=== PATIENT | female | born 1940 | race Caucasian/White ===

== ENCOUNTER 2020-04-04 11:50 | Inpatient (IN) ==
[2020-04-04 13:04] LABS: Basophils # 0.1 10*3/uL (0.0-0.2); Basophils % 0.5 % (0.0-0.8); Eosinophils # 0.6 10*3/uL (0.0-0.87); Eosinophils % 6.3 % (0.00-10.9); Hematocrit 42.2 VOL% (35.7-47.0); Hemoglobin 13.6 GM/DL (12.0-16.0); Immature Granulocytes % 0.3 %; Immature Granulocytes Absolute 0.03 #; Lymphocytes # 1.9 10*3/uL (1.4-4.0); Lymphocytes % 20.5 % (21.3-54.2); Mean Corpuscular HGB Conc 32.2 GM/DL (32-36); Mean Corpuscular Volume 100.2 FL (87-102); Mean Platelet Volume 9.8 FL (9.6-12.0); Monocytes % 6.8 % (1.7-12.7); Neutrophils % 65.6 % (38.7-73.9); Platelet Count 193 T/CUMM (130-400); Red Blood Count 4.21 MC/CUMM (3.8-5.5); Red Cell Distribution Width 14.3 % (9.3-17.3); White Blood Count 9.4 T/CUMM (4-12)
[2020-04-04 13:15] LABS: PT Patient Result 10.4 SECS (9.8-11.9); Partial Thromboplastin Time 31.4 SECS (23.9-33.8)
[2020-04-04 13:28] LABS: Albumin 4.1 G/DL (3.4-5.0); Bilirubin,Total 0.5 MG/DL (0.2-1.0); Calcium 10.1 MG/DL (8.5-10.1); Osmolality,Calculated 284.1 MOS/KG (273-304); Total Protein 7.2 G/DL (6.4-8.3)
[2020-04-04 14:05] LABS: Sedimentation Rate-Westergren 13 MM/HR (0-30)
[2020-04-04] MEDS ORDERED: LABETALOL 20 MG/4 ML SYRINGE IV PRN ×2 (17:10→18:15)
[2020-04-04] MEDS ORDERED: POLYETHYLENE GLYCOL POWDER 17 GM PACK PO PRN (17:32)
[2020-04-04] MEDS ORDERED: hydrALAZINE 20 MG/1 ML VIAL IV STA (18:11)
[2020-04-04] MEDS ORDERED: hydrALAZINE 20 MG/1 ML VIAL ONE (18:13)
[2020-04-04] MEDS: hydrALAZINE 25 MG TABLET PO SCH (20:24)
[2020-04-04] MEDS: carvediloL 25 MG TABLET PO SCH (20:24)
[2020-04-04] MEDS: ISOSORBIDE MONONITRATE 20 MG TABLET PO SCH (20:24)
[2020-04-04] MEDS: METHOCARBAMOL 750 MG TABLET PO SCH (20:24)
[2020-04-04] MEDS: ENOXAPARIN 40 MG/0.4 ML SYRINGE SUBCUT SCH (20:26)
[2020-04-04] MEDS: ATORVASTATIN 10 MG TABLET PO SCH (20:26)
[2020-04-04] MEDS: GABAPENTIN 300 MG CAPSULE PO SCH (20:26)
[2020-04-04] MEDS: AMITRIPTYLINE 25 MG TABLET PO SCH (20:26)
[2020-04-04] MEDS: lisinopriL 20 MG TABLET PO SCH (20:26)
[2020-04-04] MEDS ORDERED: HYOSCYAMINE 0.125 MG TABLET PO PRN (21:00)
[2020-04-04] MEDS ORDERED: NIFEdipine 10 MG CAPSULE PO PRN (22:00)
[2020-04-05] MEDS: METHOCARBAMOL 750 MG TABLET PO SCH ×3 (04:56→20:35)
[2020-04-05] MEDS: GABAPENTIN 300 MG CAPSULE PO SCH ×3 (04:56→20:35)
[2020-04-05] MEDS: LEVOTHYROXINE 75 MCG TABLET PO SCH (06:40)
[2020-04-05 07:24] LABS: Basophils % 0.3 % (0.0-0.8); Eosinophils # 0.5 10*3/uL (0.0-0.87); Eosinophils % 4.7 % (0.00-10.9); Hematocrit 40.3 VOL% (35.7-47.0); Hemoglobin 12.9 GM/DL (12.0-16.0); Immature Granulocytes % 0.4 %; Immature Granulocytes Absolute 0.04 #; Lymphocytes # 2.4 10*3/uL (1.4-4.0); Lymphocytes % 23.4 % (21.3-54.2); Mean Corpuscular Volume 100.2 FL (87-102); Mean Platelet Volume 10.1 FL (9.6-12.0); Monocytes % 9.3 % (1.7-12.7); Neutrophils % 61.9 % (38.7-73.9); Platelet Count 193 T/CUMM (130-400); Red Blood Count 4.02 MC/CUMM (3.8-5.5); Red Cell Distribution Width 14.1 % (9.3-17.3); White Blood Count 10.3 T/CUMM (4-12)
[2020-04-05 07:40] LABS: Calcium 9.3 MG/DL (8.5-10.1); Osmolality,Calculated 276.5 MOS/KG (273-304); Risk Ratio 2.54; VLDL CHOLESTEROL 31.6 MG/DL
[2020-04-05] MEDS: ISOSORBIDE MONONITRATE 20 MG TABLET PO SCH ×2 (09:14→20:36)
[2020-04-05] MEDS: lisinopriL 20 MG TABLET PO SCH ×2 (09:15→20:36)
[2020-04-05] MEDS: amLODIPine 10 MG TABLET PO SCH (09:15)
[2020-04-05] MEDS: CLOPIDOGREL 75 MG TABLET PO SCH (09:15)
[2020-04-05] MEDS: carvediloL 25 MG TABLET PO SCH ×2 (09:15→20:36)
[2020-04-05] MEDS: hydrALAZINE 25 MG TABLET PO SCH ×2 (09:15→20:36)
[2020-04-05] MEDS: MAGNESIUM CHLORIDE 64 MG TABLET PO SCH (09:15)
[2020-04-05] MEDS: PANTOPRAZOLE 40 MG TABLET PO SCH (09:15)
[2020-04-05] MEDS: ASPIRIN 325 MG TABLET PO SCH (09:15)
[2020-04-05] MEDS: ATORVASTATIN 10 MG TABLET PO SCH (20:36)
[2020-04-05] MEDS: AMITRIPTYLINE 25 MG TABLET PO SCH (20:37)
[2020-04-05] MEDS: ENOXAPARIN 40 MG/0.4 ML SYRINGE SUBCUT SCH (20:37)
[2020-04-06 04:30] LABS: Basophils % 0.4 % (0.0-0.8); Eosinophils # 0.6 10*3/uL (0.0-0.87); Eosinophils % 6.4 % (0.00-10.9); Hemoglobin 12.8 GM/DL (12.0-16.0); Immature Granulocytes % 0.2 %; Immature Granulocytes Absolute 0.02 #; Lymphocytes # 3.6 10*3/uL (1.4-4.0); Mean Corpuscular HGB Conc 32.8 GM/DL (32-36); Mean Corpuscular Volume 99.5 FL (87-102); Mean Platelet Volume 10.2 FL (9.6-12.0); Monocytes % 9.7 % (1.7-12.7); Neutrophils % 44.3 % (38.7-73.9); Platelet Count 195 T/CUMM (130-400); Red Blood Count 3.92 MC/CUMM (3.8-5.5); Red Cell Distribution Width 14.1 % (9.3-17.3); White Blood Count 9.3 T/CUMM (4-12)
[2020-04-06 04:47] LABS: Calcium 9.2 MG/DL (8.5-10.1); Osmolality,Calculated 283.3 MOS/KG (273-304)
[2020-04-06] MEDS: METHOCARBAMOL 750 MG TABLET PO SCH ×3 (05:28→20:36)
[2020-04-06] MEDS: GABAPENTIN 300 MG CAPSULE PO SCH ×3 (05:28→20:35)
[2020-04-06] MEDS: hydrALAZINE 25 MG TABLET PO SCH ×2 (08:45→20:35)
[2020-04-06] MEDS: ASPIRIN 325 MG TABLET PO SCH (08:45)
[2020-04-06] MEDS: ISOSORBIDE MONONITRATE 20 MG TABLET PO SCH ×2 (08:45→20:35)
[2020-04-06] MEDS: LEVOTHYROXINE 75 MCG TABLET PO SCH (08:45)
[2020-04-06] MEDS: lisinopriL 20 MG TABLET PO SCH ×2 (08:46→20:35)
[2020-04-06] MEDS: carvediloL 25 MG TABLET PO SCH ×2 (08:46→20:36)
[2020-04-06] MEDS: PANTOPRAZOLE 40 MG TABLET PO SCH (08:46)
[2020-04-06] MEDS: MAGNESIUM CHLORIDE 64 MG TABLET PO SCH (08:46)
[2020-04-06] MEDS: amLODIPine 10 MG TABLET PO SCH (08:46)
[2020-04-06] MEDS: CLOPIDOGREL 75 MG TABLET PO SCH (08:46)
[2020-04-06] MEDS: AMITRIPTYLINE 25 MG TABLET PO SCH (20:35)
[2020-04-06] MEDS: ATORVASTATIN 10 MG TABLET PO SCH (20:36)
[2020-04-06] MEDS: ENOXAPARIN 40 MG/0.4 ML SYRINGE SUBCUT SCH (20:36)
[2020-04-07] MEDS: GABAPENTIN 300 MG CAPSULE PO SCH ×3 (05:09→20:39)
[2020-04-07] MEDS: METHOCARBAMOL 750 MG TABLET PO SCH ×3 (05:10→20:39)
[2020-04-07] MEDS: LEVOTHYROXINE 75 MCG TABLET PO SCH (05:58)
[2020-04-07] MEDS: hydrALAZINE 25 MG TABLET PO SCH ×2 (09:00→20:39)
[2020-04-07] MEDS: ASPIRIN 325 MG TABLET PO SCH (09:00)
[2020-04-07] MEDS: ISOSORBIDE MONONITRATE 20 MG TABLET PO SCH ×2 (09:00→20:39)
[2020-04-07] MEDS: amLODIPine 10 MG TABLET PO SCH (09:00)
[2020-04-07] MEDS: PANTOPRAZOLE 40 MG TABLET PO SCH (09:00)
[2020-04-07] MEDS: CLOPIDOGREL 75 MG TABLET PO SCH (09:00)
[2020-04-07] MEDS: MAGNESIUM CHLORIDE 64 MG TABLET PO SCH (09:01)
[2020-04-07] MEDS: lisinopriL 20 MG TABLET PO SCH ×2 (09:01→20:40)
[2020-04-07] MEDS: carvediloL 25 MG TABLET PO SCH ×2 (09:01→20:40)
[2020-04-07] MEDS: ATORVASTATIN 10 MG TABLET PO SCH (20:39)
[2020-04-07] MEDS: AMITRIPTYLINE 25 MG TABLET PO SCH (20:40)
[2020-04-07] MEDS: ENOXAPARIN 40 MG/0.4 ML SYRINGE SUBCUT SCH (20:40)
[2020-04-08] MEDS: GABAPENTIN 300 MG CAPSULE PO SCH ×3 (04:48→20:09)
[2020-04-08] MEDS: METHOCARBAMOL 750 MG TABLET PO SCH ×3 (04:48→20:09)
[2020-04-08] MEDS: LEVOTHYROXINE 75 MCG TABLET PO SCH (05:33)
[2020-04-08 06:36] LABS: Rheumatoid Factor < 15 IU/ML (<15); Uric Acid 6.1 MG/DL (2.6-6.0)
[2020-04-08 08:23] LABS: Cyclic Citrull Peptide Interp Negative
[2020-04-08] MEDS: hydrALAZINE 25 MG TABLET PO SCH ×2 (08:52→20:10)
[2020-04-08] MEDS: CLOPIDOGREL 75 MG TABLET PO SCH (08:52)
[2020-04-08] MEDS: lisinopriL 20 MG TABLET PO SCH ×2 (08:52→20:10)
[2020-04-08] MEDS: MAGNESIUM CHLORIDE 64 MG TABLET PO SCH (08:52)
[2020-04-08] MEDS: amLODIPine 10 MG TABLET PO SCH (08:52)
[2020-04-08] MEDS: PANTOPRAZOLE 40 MG TABLET PO SCH (08:52)
[2020-04-08] MEDS: ASPIRIN 325 MG TABLET PO SCH (08:52)
[2020-04-08] MEDS: carvediloL 25 MG TABLET PO SCH ×2 (08:52→20:10)
[2020-04-08] MEDS: ISOSORBIDE MONONITRATE 20 MG TABLET PO SCH ×2 (08:53→20:10)
[2020-04-08] MEDS: AMITRIPTYLINE 25 MG TABLET PO SCH (20:10)
[2020-04-08] MEDS: ATORVASTATIN 10 MG TABLET PO SCH (20:10)
[2020-04-08] MEDS: ENOXAPARIN 40 MG/0.4 ML SYRINGE SUBCUT SCH (20:12)
[2020-04-09] MEDS: GABAPENTIN 300 MG CAPSULE PO SCH ×2 (06:35→12:40)
[2020-04-09] MEDS: METHOCARBAMOL 750 MG TABLET PO SCH ×2 (06:35→12:40)
[2020-04-09] MEDS: LEVOTHYROXINE 75 MCG TABLET PO SCH (06:36)
[2020-04-09] MEDS: MAGNESIUM CHLORIDE 64 MG TABLET PO SCH (09:00)
[2020-04-09] MEDS: carvediloL 25 MG TABLET PO SCH (09:00)
[2020-04-09] MEDS: PANTOPRAZOLE 40 MG TABLET PO SCH (09:00)
[2020-04-09] MEDS: lisinopriL 20 MG TABLET PO SCH (09:00)
[2020-04-09] MEDS: amLODIPine 10 MG TABLET PO SCH (09:00)
[2020-04-09] MEDS: ISOSORBIDE MONONITRATE 20 MG TABLET PO SCH (09:01)
[2020-04-09] MEDS: CLOPIDOGREL 75 MG TABLET PO SCH (09:01)
[2020-04-09] MEDS: hydrALAZINE 25 MG TABLET PO SCH (09:01)
[2020-04-09] MEDS: ASPIRIN 325 MG TABLET PO SCH (09:01)
[2020-04-09 12:43] VITALS: BP 165/73
== END 2020-04-09 16:04 | disposition swing bed (61) | DRG 554 ==
LOC: N.ED 11:50 → N.EDINP 17:25 → SUATTDRO 17:25 → N.TELEN 18:24
PROVIDERS: ADMIT Internal Medicine; ATTEND Internal Medicine